=== PATIENT | male | born 1940 | race Caucasian/White ===

== ENCOUNTER → 2018-09-03 | Outpatient (CLI) | payer OTHER ==
[~2018-09-03] MED LIST: AMLODIPINE BESYL5 MG PO; AMOXICILLIN; FISH OIL 1,0001 EAC5 PO; GLUCOSAMINE-MS1 EAC3 PO; KEFLEX500 MG PO; MOBIC7.5 MG PO; MULTIVITAMINS PO; TIZANIDINE HCL 22 M1 PO; VITAMIN D-32000 UNIT PO
== END ==
LOC: CAT 13:12
DX: Z13.6 Encounter for screening for cardiovascular disorders (principal); E78.00 Pure hypercholesterolemia, unspecified; Z82.49 Family history of ischemic heart disease and other diseases of the circulatory system

== ENCOUNTER → 2021-01-06 | Outpatient (CLI) | payer OTHER | LOC: SJCVCIMAG 01-03 09:10 | PROVIDERS: ATTEND Family Medicine | DX: I65.23 Occlusion and stenosis of bilateral carotid arteries (principal); I10 Essential (primary) hypertension; E78.2 Mixed hyperlipidemia ==